=== PATIENT | female | born 1950 | race Caucasian/White ===

== ENCOUNTER 2018-03-15 00:44 | Emergency (ER) | payer MEDICARE, BC ==
[2018-03-15] MEDS ORDERED: HYDROmorphone 2 MG/ML Syringe SUBCUT ONE (01:04)
[2018-03-15] MEDS ORDERED: Sodium Chloride 0.9% 1,000 ML IV ONE (04:02)
[2018-03-15] MEDS ORDERED: Ondansetron 4 MG/2 ML SDV IVPUSH ONE (04:03)
--- NOTE | 2018-03-15 04:12 | ER ---
DATE OF SERVICE: 03/15/2018 HISTORY OF PRESENT ILLNESS: A 67-year-old lady who comes in with her with complaints of abdominal pain on the left side, mostly involving the upper left quadrant. She states that it started about 7 p.m. and it came on quickly and has been severe pain. She did take 1 hydrocodone, but it did not touch her pain. The patient denies any nausea or vomiting. She rates her pain at 9 or 10/10. She denies any falls or injuries. She has not been sick recently. She does have history of a kidney stone about 2 years ago, and she states this does feel similar. Her previous episode, the stone had to be removed. OBJECTIVE: GENERAL APPEARANCE: The patient is awake and alert. She is uncomfortable because of the pain. VITAL SIGNS: Reviewed. Pulse is 122. She is afebrile. Blood pressure 116/76, respirations 22, and O2 sats 95%. ABDOMEN: The patient has diffuse abdominal pain on the left upper and lower quadrant area with palpation. Bowel sounds are present, but hypoactive. SKIN: Warm and dry. LUNGS: Clear. CARDIAC: Heart sounds distinct without murmurs. HEENT: Oral mucous membranes moist. Tonsils not enlarged or injected. INITIAL TREATMENT: Dilaudid 2 mg was given subcutaneously and this did provide good pain control for the patient. LABS: Include CBC showing a normal white count of 8.0, hemoglobin is good at 13.7. Neutrophils are slightly elevated at 85. Comprehensive metabolic panel shows electrolytes are good. Kidney function reveals a BUN of 30, creatinine 1.06, both slightly elevated. GFR 52. Liver enzymes are good. Amylase and lipase are normal. CT of the abdomen and pelvis show a 6 mm stone in the right proximal ureter with hydronephrosis and hydroureter, rated as moderate. DIAGNOSIS: Obstructing kidney stone or renal stone. TREATMENT PLAN: I did talk with the hospitalist, Dr Humphries at [facility] , who accepted the patient and arrangements are being made for transfer. The patient should be leaving our facility within 15 or 20 minutes. An IV has been started. She will be given normal saline in a bolus form until leaving and then 200 an hour upon leaving our facility. We will also give her 1 dose of Zofran IV to assist with any problems with nausea that may occur en route. Final meds given before transfer; Toradol 15 mg IV ZOFRAN 4 MG IV Dilaudid 2 mg IV. Patient rates her pain at 4/10 when leaving our facility. She is resting comfortably. CRS/MODL /[id number] MTDD
[2018-03-15] MEDS ORDERED: Morphine 2 MG/ML Syringe ONE (04:14)
[2018-03-15] MEDS ORDERED: Ondansetron 4 MG/2 ML SDV ONE (04:14)
[2018-03-15] MEDS ORDERED: Morphine 10 MG/ML SDV IV ONE (04:15)
[2018-03-15] MEDS ORDERED: Ketorolac 30 MG/ML SDV IVPUSH ONE (04:16)
[2018-03-15 04:20] VITALS: BP 180/82
[2018-03-15] MEDS ORDERED: Ketorolac 30 MG/ML SDV ONE (04:21)
[2018-03-15] MEDS ORDERED: HYDROmorphone 2 MG/ML Syringe ONE (04:31)
[2018-03-15] MEDS: HYDROmorphone 2 MG/ML Syringe IVPUSH ONE ×2 (04:34→04:35)
--- NOTE | 2018-03-15 07:03 | CT ---
UNENHANCED ABDOMEN AND PELVIC CT, 03/15/19 Multislice acquisition through the abdomen and pelvis without IV or oral contrast was performed. Comparison was made to a prior unenhanced abdomen and pelvic CT dated 08/03/16. Breathing motion artifact degrades imaging quality. There are atelectatic changes in the dependent portion of both lower lungs and in both lung bases. There are multiple calcifications inferior to the hilum most likely representing calcified lymph nodes that compare to prior granulomatous disease The heart size is normal. There is a small pericardial effusion. There are coronary artery calcifications. There is a moderate sized hiatal hernia. The liver is normal size. There are calcifications within the liver consistent with prior granulomatous disease. The liver is otherwise unremarkable. The gallbladder appears normal. No calcified gallstones. The spleen is normal size. There are multiple calcifications within the spleen consistent with prior granulomatous disease. The spleen otherwise appears normal. The pancreas appears normal. The right and left adrenals appear normal. There is a 4 mm right ureteral calculi located in the right ureter at the L3 level. There is hydronephrosis and hydroureter proximal to it. The right kidney is swollen and there is perinephric fat stranding. This is probably related to obstruction. The left kidney and collecting system appear normal. The bladder is partially fluid filled. It appears normal. There is a 4 cm contour deforming mass in the anterior aspect of the uterus on the left consistent with a uterine leiomyoma. The appendix is not dilated. No evidence of appendicitis. There is diverticulosis of the transverse, descending, and sigmoid colon . No evidence of diverticulitis. There is moderate amount of stool noted in the ascending and transverse colon. There is a small umbilical hernia containing fat. No free air. No free fluid. No dilated loops of bowel. No adenopathy. No aortic aneurysm. Thee are laminectomy defects at multiple levels in the lumbar spine with internal fixation. IMPRESSION: 4 mm right ureteral calculi with obstruction. Multiple other findings as discussed above. [id number] [facility]
== END 2018-03-15 04:48 ==
LOC: LB.ED 00:44
DX: N13.2 Hydronephrosis with renal and ureteral calculous obstruction (principal)
CPT/HCPCS: 36415; 74176; 80053; 82150; 83690; 85025; 96372; 96374; 96375; 99285; A0425; A0429; J1170; J1885; J2270; J2405; J7030

== ENCOUNTER 2019-09-05 18:34 | Emergency (ER) | payer MEDICARE ==
--- NOTE | 2019-09-05 19:12 | EDM.PDOC ---
ED HPI GENERAL MEDICAL PROBLEM - General Chief Complaint: General Stated Complaint: FALL AT HOME Time Seen by Provider: 09/05/19 18:50 Source of Information: Reports: Patient, Family History Limitations: Reports: Altered Mental Status - History of Present Illness INITIAL COMMENTS - FREE TEXT/NARRATIVE: Fell X2 today recently dx with [place]'s chorea. Had long drives past 2 days. C/o back pain s/p surgery 03/2019 Onset: Today Duration: Getting Worse Location: Reports: Back Quality: Reports: Ache Severity: Moderate Improves with: Reports: None Worsens with: Reports: Movement Context: Reports: Activity Associated Symptoms: Reports: No Other Symptoms Treatments BIG 6 DEALER: Reports: NSAIDS Lower Back Pain Score (Numeric/FACES): 5 - Related Data Allergies Allergy/AdvReac Type Severity Reaction Status Date / Time No Known Allergies Allergy Verified 09/05/19 18:43 Home Meds: Home Meds Ibuprofen 400 mg PO Q4HR PRN 03/14/17 [History] Past Medical History HEENT History: Reports: Other (See Below) Other HEENT History: reading glasses Gastrointestinal History: Reports: Irritable Bowel Syndrome Genitourinary History: Reports: Renal Calculus 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: Musculoskeletal History: Reports: Arthritis, Back Pain, Chronic, Other (See Below) Other Musculoskeletal History: s/p TLIF L3-S1 - Infectious Disease History Infectious Disease History: Reports: Chicken Pox, Measles - Past Surgical History HEENT Surgical History: Reports: Oral Surgery GI Surgical History: Reports: Colonoscopy Female Surgical History: Reports: Kidney stone extraction Endocrine Surgical History: Reports: Thyroidectomy, Other (See Below) Other Endocrine Surgeries/Procedures: partial thyroidectomy Musculoskeletal Surgical History: Reports: None Social & Family History - Family History Family Medical History: Noncontributory - Caffeine Use Caffeine Use: Reports: None ED ROS GENERAL - Review of Systems Review Of Systems: See Below Constitutional: Reports: Weakness HEENT: Reports: No Symptoms Respiratory: Reports: No Symptoms Cardiovascular: Reports: No Symptoms GI/Abdominal: Reports: No Symptoms : Reports: Frequency Musculoskeletal: Reports: Other (poor coordination in legs) ED EXAM, GENERAL - Physical Exam Exam: See Below Course - Vital Signs Last Recorded V/S: Last Vital Signs Temp 36.9 C 09/05/19 19:00 Pulse 103 H 09/05/19 21:06 Resp 16 09/05/19 21:06 BP 123/78 03/05/20 21:06 Pulse Ox 93 L 09/05/19 21:06 - Orders/Labs/Meds Labs: Laboratory Tests 09/05/19 09/05/19 Range/Units 19:23 19:23 WBC 15.2 H D (4.0-11.0) K/uL RBC 3.85 (3.80-5.80) M/uL Hgb 12.4 (11.5-16.5) g/dL Hct 35.7 L (37.0-47.0) % MCV 93 (76-96) fL MCH 32.2 H (27.0-32.0) pg MCHC 34.7 (31.0-35.0) g/dL RDW 13.3 (11.0-16.0) % Plt Count 142 L (150-500) K/uL MPV 11.8 H (6.0-10.0) fL Neut % (Auto) 89.9 H (45.0-70.0) % Lymph % (Auto) 4.5 L (20.0-40.0) % [place] % (Auto) 5.5 (3.0-10.0) % Eos % (Auto) 0.0 L (1.0-5.0) % Baso % (Auto) 0.1 (0.0-0.5) % Neut # (Auto) 13.68 H (2.00-7.50) K/uL Lymph # (Auto) 0.69 L (1.50-4.00) K/uL [place] # (Auto) 0.84 H (0.20-0.80) K/uL Eos # (Auto) 0.00 L (0.04-0.40) K/uL Baso # (Auto) 0.01 L (0.02-0.10) K/uL Sodium 135 L (136-145) mmol/L Potassium 3.3 L D (3.5-5.1) mmol/L Chloride 100 (98-107) mmol/L Carbon Dioxide 22.7 (21.0-32.0) mmol/L Anion Gap 15.6 H (5.0-15.0) mmol/L BUN 37 H D (8-26) mg/dL Creatinine 1.60 H D (0.55-1.02) mg/dL Est Cr Clr Drug Dosing TNP Estimated GFR (MDRD) 32 L (>60) MLS/MIN BUN/Creatinine Ratio 23.1 (6-25) Glucose 128 H D (74-100) mg/dL Calcium 10.7 H (8.5-10.1) mg/dL Departure - Departure Time of Disposition: 20:10 Disposition: Home, Self-Care 01 Clinical Impression: Ataxia - Discharge Information *PRESCRIPTION DRUG MONITORING PROGRAM REVIEWED*: No *COPY OF PRESCRIPTION DRUG MONITORING REPORT IN PATIENT MERI: No Instructions: How To Use a Four-Wheeled Walker, Fatigue, Back Exercises, Easy- to-Read, How to Use a Walker, Chronic Back Pain, [id number] Referrals: PCP,None [Primary Care Provider] - Forms: ED Department Discharge Sepsis Event Note - Focused Exam Date Exam was Performed: 09/11/19 Time Exam was Performed: 16:05
[2019-09-05 21:08] VITALS: BP 123/78; PULSE 103
--- NOTE | 2019-09-05 23:35 | ER ---
HISTORY OF PRESENT ILLNESS: The patient is a 68-year-old woman who was brought in by ambulance because of weakness and poor coordination. She had fallen twice at home today, and her was unable to get her up after the last fall. History is significant, in that they have just made a 2 day round trip to [facility] last evening. Yesterday, they were informed of a diagnosis of [place]'s chorea. She is complaining of back pain, but has no other acute problems. PHYSICAL EXAMINATON: VITAL SIGNS: Within normal limits. LABORATORY DATA: White count was mildly elevated at 15,000 of unknown significance. X-rays of the lumbar spine show her previous surgery hardware appears to be intact. IMPRESSION: Leg weakness. PLAN: I think some of this is due to her [place]'s plus stress of a long car trip. They are encouraged to see a primary provider for followup and probable physical therapy referral and other appropriate treatments. LOVE/PRINCE /[id number]
--- NOTE | 2019-09-06 12:21 | CR ---
DATE OF SERVICE: 09/05/19 CLINICAL DATA: pain, weakness LUMBAR SPINE: Comparison is made to a prior exam dated 08/24/17. The patient is status post L3-4, L4-5, and L5-S1 discectomy. The patient is status post fusion from L2 to S1. There is internal fixation of L2, L3, L4, L5 , and S1 with posterior metal rods and pedicle screws. There is degenerative disc disease throughout the lower thoracic and upper lumbar spine. There are degenerative changes involving the SI joints. No acute abnormalities. [id number] MTDD
== END 2019-09-05 20:10 | disposition home or self-care (01) ==
LOC: LB.ED 18:34
DX: R27.0 Ataxia, unspecified (principal); R53.1 Weakness; M54.5 Low back pain; W19.XXXA Unspecified fall, initial encounter; Y92.009 Unspecified place in unspecified non-institutional (private) residence as the place of occurrence of the external cause
CPT/HCPCS: 36415; 72100; 80048; 85025; 99282; 99284; A0425; A0429

== ENCOUNTER 2020-03-28 12:23 | Emergency (ER) | payer MEDICARE ==
[2020-03-28 13:29] VITALS: BP 146/76; PULSE 79
[2020-03-28] MEDS ORDERED: Sulfamethoxazole/Trimethoprim 800-160 MG Tab ONE (14:00)
--- NOTE | 2020-03-28 17:14 | ER ---
REASON FOR EMERGENCY ROOM VISIT: Weakness. 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 She does have a family history of Arnold chorea in her mother. Since August, she has gradually suffered as a consequence of this decline in her gait with progressive unsteadiness. She was diagnosed when she was referred to the [facility] last August. According to the patient and her , her gait unsteadiness and generalized weakness have waxed and waned and lately over the past 3 or 4 days, however, this weakness has been more pronounced. She was apparently doing fairly well with physical therapy, but because of insurance issues, they had to discontinue this 2 weeks ago. Over the past week or so, she has been acting more "out of it" and had more weakness and unsteadiness with her gait. She has not had any visual changes or changes in her speech, although her speech is impaired as a consequence of her [place] chorea. Her orientation and mental function have been reasonably stable. She is on no medications. She did have a mild cough when I walked in the emergency room, but she denies any significant coughing-like symptoms. PAST MEDICAL HISTORY: 1. [place] chorea. 2. Back surgery 3 years ago because of pain. She had a lumbar laminectomy and spinal fusion. MEDICATIONS: None. ALLERGIES: NONE TO MEDICATIONS. REVIEW OF SYSTEMS: Pertinent positives and negatives as noted in the HPI. PHYSICAL EXAMINATION: GENERAL: She is awake and alert. She smiles appropriately and is in no acute distress. Her speech is somewhat delayed, but she follows a logical thought pattern and is oriented x3. VITALS: She is febrile with a temperature of 38.1, heart rate is 79, blood pressure 146/76, respirations 16, O2 sats 98%. HEENT: Head is normocephalic. Oropharynx is normal. No scleral icterus or conjunctivitis. NECK: Supple. No adenopathy. CHEST: Clear to auscultation with no wheezes, rhonchi, or rales. CARDIAC: Regular rate without murmur. ABDOMEN: Soft and nontender. She has no CVA tenderness. NEUROLOGIC: She demonstrates choreiform movements, typical of [place] chorea. Her muscle strength is symmetrical bilaterally in the upper and lower extremities. Her deep tendon reflexes are brisk bilaterally and symmetrical. Sensation is normal to crude touch. LABORATORY DATA: A chest x-ray was obtained and shows no active pulmonary disease. Because of the deterioration and concerns that her decline in terms of strength and gait was much more pronounced over the past 3 or 4 days, we went ahead with a CT scan which showed no evidence of acute thought process and no evidence of stroke. CBC showed that her white count is elevated at 14,100. Her hemoglobin is 13.4. Her urinalysis shows that she has proteinuria with a large amount of occult blood. She has leukocyte esterase with 10 to 20 rbc's per high-powered field and 40 to 50 wbc's per high-power field with a few clumps and many bacteria. Because of her mild respiratory symptoms when I first saw her, I went ahead and obtained a COVID rapid antigen test and that was negative. IMPRESSION: Urinary tract infection. PLAN: She was given Bactrim DS, dispensed #20. Her and she were instructed that she should take one twice daily x5 days and liberalization of fluids was encouraged. I explained to them I think this explains her weakness quite likely and it certainly explains her low-grade fever. They understand and agree with this plan. All questions were answered. BALDOMERO /[id number]
--- NOTE | 2020-03-29 09:41 | CT ---
Date of Service: 03/28/20 Clinical Data: general UNENHANCED BRAIN CT: Multislice axial acquisition was performed. No priors. There is diffuse cerebral atrophy. There are periventricular lucencies bilaterally consistent with small vessel ischemic changes. No masses or mass effect. No intracranial hemorrhage. No evidence of acute or subacute infarct. No osseous abnormalities. IMPRESSION: No acute intracranial abnormalities. [id number] [facility]
--- NOTE | 2020-03-29 09:45 | CR ---
Date of Service: 03/28/20 Clinical Data: general PA AND LATERAL CHEST: No priors. The heart size is normal. The aorta is calcified and ectatic. There are multiple calcifications overlying the right hilum. There is also calcified nodule in the right lower lung laterally. The findings are consistent with prior granulomatous disease. The lungs are otherwise clear. No pneumothorax. No pleural effusions. No evidence of acute intrathoracic disease. [id number] [facility]
== END 2020-03-28 14:45 | disposition home or self-care (01) ==
LOC: LB.ED 12:23
DX: N39.0 Urinary tract infection, site not specified (principal); R05 Cough
CPT/HCPCS: 36415; 70450; 71046; 81001; 85025; 99283; 99285; A9270; U0002

== ENCOUNTER 2020-05-08 09:30 | Emergency (ER) | payer MEDICARE ==
[2020-05-08 09:51] VITALS: BP 125/68; PULSE 94
--- NOTE | 2020-05-08 09:56 | EDM.PDOC ---
ED HPI GENERAL MEDICAL PROBLEM - General Chief Complaint: Genitourinary Problem Stated Complaint: WEAKNESS Time Seen by Provider: 05/08/20 09:35 - History of Present Illness INITIAL COMMENTS - FREE TEXT/NARRATIVE: 69 year old female with a past medical hisroty of [place]'s Disease (diagnosed in August) presents with 2 days of increased generalized weakness. She had similar symptoms 2 weeks ago and was found to have a UTI. She has chronic body aches and is at baseline now without any new pain. Denies any cough, fever, CP, SOB, diarrhea, abdominal pain, or focal weakness. Severity: Moderate Associated Symptoms: Reports: Weakness - Related Data Allergies Allergy/AdvReac Type Severity Reaction Status Date / Time No Known Allergies Allergy Verified 09/05/19 18:43 Home Meds: Home Meds Ibuprofen 400 mg PO Q4HR PRN 03/14/17 [History] cephALEXin [Keflex] 500 mg PO Q6HR 10 Days #40 capsule 05/08/20 [Rx] Past Medical History - Past Health History Medical/Surgical History: Denies Medical/Surgical History HEENT History: Reports: Other (See Below) Other HEENT History: reading glasses Gastrointestinal History: Reports: Irritable Bowel Syndrome Genitourinary History: Reports: Renal Calculus 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: Musculoskeletal History: Reports: Arthritis, Back Pain, Chronic, Other (See Below) Other Musculoskeletal History: s/p TLIF L3-S1 Neurological History: Reports: Other (See Below) Other Neuro History: Huntingtons newly diagnosis - Infectious Disease History Infectious Disease History: Reports: Chicken Pox, Measles - Past Surgical History HEENT Surgical History: Reports: Oral Surgery GI Surgical History: Reports: Colonoscopy Female Surgical History: Reports: Kidney stone extraction Endocrine Surgical History: Reports: Thyroidectomy, Other (See Below) Other Endocrine Surgeries/Procedures: partial thyroidectomy Musculoskeletal Surgical History: Reports: None Social & Family History - Family History Family Medical History: Noncontributory - Caffeine Use Caffeine Use: Reports: None ED ROS GENERAL - Review of Systems Review Of Systems: See Below Constitutional: Reports: Weakness HEENT: Reports: No Symptoms Respiratory: Reports: No Symptoms Cardiovascular: Reports: No Symptoms Endocrine: Reports: No Symptoms GI/Abdominal: Reports: No Symptoms : Reports: Other (states she urinates a lot, but denies any pain) Musculoskeletal: Reports: Joint Pain, Muscle Pain, Muscle Stiffness Skin: Reports: No Symptoms Neurological: Reports: Weakness Psychiatric: Reports: No Symptoms ED EXAM, NEURO - Physical Exam Exam: See Below Exam Limited By: No Limitations General Appearance: Alert, No Apparent Distress Eye Exam: Bilateral Eye: Normal Inspection, PERRL Ears: Normal External Exam, Normal Canal, Normal TMs Nose: Normal Inspection, No Blood Throat/Mouth: Normal Inspection, Normal Lips, Normal Teeth, Normal Gums, Normal Oropharynx, Normal Voice, No Airway Compromise Head Exam: Atraumatic Neck: Normal Inspection, Non-Tender Respiratory/Chest: No Respiratory Distress, Lungs Clear, Normal Breath Sounds Cardiovascular: Normal Peripheral Pulses, Regular Rate, Rhythm, No Edema, No JVD, No Murmur GI/Abdominal: Normal Bowel Sounds, Soft, Non-Tender Neurological: Alert, Normal Mood/Affect, CN II-XII Intact, Oriented x 3 Back Exam: Normal Inspection, CVA Tenderness (L) Extremities: Normal Inspection, Non-Tender, No Pedal Edema, Normal Capillary Refill Psychiatric: Normal Affect, Normal Mood Skin Exam: Warm, Dry, Intact, No Rash Course - Vital Signs Last Recorded V/S: Last Vital Signs Temp 99.1 F 05/08/20 09:49 Pulse 94 05/08/20 09:49 Resp 18 05/08/20 09:49 BP 125/68 05/08/20 09:49 Pulse Ox 95 05/08/20 09:49 - Orders/Labs/Meds Orders: Active Orders 24 hr Category Date Time Status EKG Documentation Completion [RC] ASDIRECTED Care 05/08/20 09:45 Active CULTURE URINE [RM] Stat Lab 05/08/20 10:32 Received cephALEXin [Keflex] Med 05/08/20 11:26 Once 500 mg PO ONETIME ONE Labs: Laboratory Tests 05/08/20 05/08/20 05/08/20 Range/Units 09:50 10:00 10:00 WBC 10.3 D (4.0-11.0) K/uL RBC 3.59 L (3.80-5.80) M/uL Hgb 11.5 (11.5-16.5) g/dL Hct 33.7 L (37.0-47.0) % MCV 94 (76-96) fL MCH 32.0 (27.0-32.0) pg MCHC 34.1 (31.0-35.0) g/dL RDW 14.4 (11.0-16.0) % Plt Count 171 (150-500) K/uL MPV 11.0 H (6.0-10.0) fL Neut % (Auto) 88.5 H (45.0-70.0) % Lymph % (Auto) 4.1 L (20.0-40.0) % [place] % (Auto) 7.1 (3.0-10.0) % Eos % (Auto) 0.1 L (1.0-5.0) % Baso % (Auto) 0.2 (0.0-0.5) % Neut # (Auto) 9.15 H (2.00-7.50) K/uL Lymph # (Auto) 0.42 L (1.50-4.00) K/uL [place] # (Auto) 0.73 (0.20-0.80) K/uL Eos # (Auto) 0.01 L (0.04-0.40) K/uL Baso # (Auto) 0.02 (0.02-0.10) K/uL Sodium 139 (136-145) mmol/L Potassium 3.3 L (3.5-5.1) mmol/L Chloride 105 (98-107) mmol/L Carbon Dioxide 24.1 (21.0-32.0) mmol/L Anion Gap 13.2 (5.0-15.0) mmol/L BUN 16 (8-26) mg/dL Creatinine 0.96 (0.55-1.02) mg/dL Est Cr Clr Drug Dosing TNP Estimated GFR (MDRD) 57 L (>60) MLS/MIN BUN/Creatinine Ratio 16.7 (6-25) Glucose 113 H (74-100) mg/dL Lactic Acid 0.9 (0.4-2.0) mmol/L Calcium 9.9 (8.5-10.1) mg/dL Total Bilirubin 0.6 D (0.0-1.0) mg/dL AST 28 (15-37) U/L ALT 44 (12-78) U/L Alkaline Phosphatase 69 (46-116) U/L Total Protein 7.1 (6.4-8.2) g/dL Albumin 3.1 L (3.4-5.0) g/dL Globulin 4.0 (2.2-4.2) g/dL Albumin/Globulin Ratio 0.8 (0.8-2.0) Urine Color Urine Appearance (CLEAR) Urine pH (5.0-8.0) Ur Specific [place] (1.003-1.030) Urine Protein (NEGATIVE) mg/dL Urine Glucose (UA) (NEGATIVE) mg/dL Urine Ketones (NEGATIVE) mg/dL Urine Occult Blood (NEGATIVE) Urine Nitrite (NEGATIVE) Urine Bilirubin (NEGATIVE) Urine Urobilinogen (0.2-1.0) E.U./dL Ur Leukocyte Esterase (NEGATIVE) Urine RBC /HPF Urine WBC /HPF Ur Epithelial Cells /HPF Urine Bacteria /HPF Urine Mucus /HPF 05/08/20 Range/Units 10:32 WBC (4.0-11.0) K/uL RBC (3.80-5.80) M/uL Hgb (11.5-16.5) g/dL Hct (37.0-47.0) % MCV (76-96) fL MCH (27.0-32.0) pg MCHC (31.0-35.0) g/dL RDW (11.0-16.0) % Plt Count (150-500) K/uL MPV (6.0-10.0) fL Neut % (Auto) (45.0-70.0) % Lymph % (Auto) (20.0-40.0) % [place] % (Auto) (3.0-10.0) % Eos % (Auto) (1.0-5.0) % Baso % (Auto) (0.0-0.5) % Neut # (Auto) (2.00-7.50) K/uL Lymph # (Auto) (1.50-4.00) K/uL [place] # (Auto) (0.20-0.80) K/uL Eos # (Auto) (0.04-0.40) K/uL Baso # (Auto) (0.02-0.10) K/uL Sodium (136-145) mmol/L Potassium (3.5-5.1) mmol/L Chloride (98-107) mmol/L Carbon Dioxide (21.0-32.0) mmol/L Anion Gap (5.0-15.0) mmol/L BUN (8-26) mg/dL Creatinine (0.55-1.02) mg/dL Est Cr Clr Drug Dosing Estimated GFR (MDRD) (>60) MLS/MIN BUN/Creatinine Ratio (6-25) Glucose (74-100) mg/dL Lactic Acid (0.4-2.0) mmol/L Calcium (8.5-10.1) mg/dL Total Bilirubin (0.0-1.0) mg/dL AST (15-37) U/L ALT (12-78) U/L Alkaline Phosphatase (46-116) U/L Total Protein (6.4-8.2) g/dL Albumin (3.4-5.0) g/dL Globulin (2.2-4.2) g/dL Albumin/Globulin Ratio (0.8-2.0) Urine Color Yellow Urine Appearance Clear (CLEAR) Urine pH 5.5 (5.0-8.0) Ur Specific [place] 1.020 (1.003-1.030) Urine Protein 100 H (NEGATIVE) mg/dL Urine Glucose (UA) Negative (NEGATIVE) mg/dL Urine Ketones 15 H (NEGATIVE) mg/dL Urine Occult Blood Moderate H (NEGATIVE) Urine Nitrite Positive H (NEGATIVE) Urine Bilirubin Negative (NEGATIVE) Urine Urobilinogen 0.2 (0.2-1.0) E.U./dL Ur Leukocyte Esterase Small H (NEGATIVE) Urine RBC 20-30 H /HPF Urine WBC 50-75 H /HPF Ur Epithelial Cells Few /HPF Urine Bacteria Moderate H /HPF Urine Mucus Few /HPF Departure - Departure Time of Disposition: 11:40 Disposition: Home, Self-Care 01 Condition: Good Clinical Impression: UTI, Urinary tract infectious disease - Discharge Information *PRESCRIPTION DRUG MONITORING PROGRAM REVIEWED*: Not Applicable *COPY OF PRESCRIPTION DRUG MONITORING REPORT IN PATIENT MERI: Not Applicable Prescriptions: cephALEXin [Keflex] 500 mg PO Q6HR 10 Days #40 capsule Referrals: PCP,None [Primary Care Provider] - Forms: ED Department Discharge Additional Instructions: Take the keflex as directed. Follow up in clinic in 2 weeks or sooner if s ymptoms persist. Return to ED for any increased or new concerninig symptoms. Drink plenty of fluid. Sepsis Event Note (ED) - Focused Exam Vital Signs: Vital Signs Temp Pulse Resp BP Pulse Ox 05/08/20 09:49 99.1 F 94 18 125/68 95 - My Orders Last 24 Hours: My Active Orders 05/08/20 09:45 EKG Documentation Completion [RC] ASDIRECTED 05/08/20 10:32 CULTURE URINE [RM] Stat 05/08/20 11:26 cephALEXin [Keflex] 500 mg PO ONETIME ONE - Assessment/Plan Last 24 Hours: My Active Orders 05/08/20 09:45 EKG Documentation Completion [RC] ASDIRECTED 05/08/20 10:32 CULTURE URINE [RM] Stat 05/08/20 11:26 cephALEXin [Keflex] 500 mg PO ONETIME ONE Plan: Spoke with patient about admission for IV antibiotics, she declines admission at this time. She will start oral keflex 500mg 4xday x 10 days. She will return to ED for any increased or new conerning symptoms. Follow up in 2 weeks with PCP. Patient verbalized understanding.
[2020-05-08] MEDS ORDERED: Cephalexin 500 MG Cap PO ONE (11:26)
== END 2020-05-08 12:00 | disposition home or self-care (01) ==
LOC: LB.ED 09:30
DX: N39.0 Urinary tract infection, site not specified (principal)
CPT/HCPCS: 36415; 80053; 81001; 83605; 85025; 87086; 87088; 87186; 93005; 99283; 99285-25; A0425; A0429

== ENCOUNTER 2020-05-22 20:58 | Emergency (ER) | payer MEDICARE ==
--- NOTE | 2020-05-22 21:48 | EDM.PDOC ---
ED HPI GENERAL MEDICAL PROBLEM - General Chief Complaint: Abdominal Pain Stated Complaint: abdominal pain Time Seen by Provider: 05/22/20 21:10 Source of Information: Reports: Patient, Family, Old Records History Limitations: Reports: No Limitations - History of Present Illness INITIAL COMMENTS - FREE TEXT/NARRATIVE: pt states onset bilateral upper quadrant abdominal pain with right greater than left, about an hour ago. outiside records from [place] show medical history significant for huntingtons disease, urology appointment yesterday with ABD US yesterday showing left side hydronephrosis without visualized obstruction and UA concerning for UTI but pt is currently asymptomatic regarding dysuria, pyuria, fever, chills. pt also denies fever, nausea, vomiting. pt states pain increases with palpation and describes it as "sharp at times and constant" Onset: Today upper abd pain Pain Score (Numeric/FACES): 6 - Related Data Allergies Allergy/AdvReac Type Severity Reaction Status Date / Time No Known Allergies Allergy Verified 05/22/20 22:06 Home Meds: Home Meds Ibuprofen 400 mg PO Q4HR PRN 03/14/17 [History] Past Medical History - Past Health History Medical/Surgical History: Denies Medical/Surgical History HEENT History: Reports: Other (See Below) Other HEENT History: reading glasses Gastrointestinal History: Reports: Irritable Bowel Syndrome Genitourinary History: Reports: Renal Calculus, UTI, Recurrent [employer]IVE History: Reports: Musculoskeletal History: Reports: Arthritis, Back Pain, Chronic, Other (See Below) Other Musculoskeletal History: s/p TLIF L3-S1 Neurological History: Reports: Other (See Below) Other Neuro History: Huntingtons disease - Infectious Disease History Infectious Disease History: Reports: Chicken Pox, Measles - Past Surgical History HEENT Surgical History: Reports: Oral Surgery GI Surgical History: Reports: Colonoscopy Female Surgical History: Reports: Kidney stone extraction Endocrine Surgical History: Reports: Thyroidectomy, Other (See Below) Other Endocrine Surgeries/Procedures: partial thyroidectomy Musculoskeletal Surgical History: Reports: None Social & Family History - Family History Family Medical History: No Pertinent Family History - Caffeine Use Caffeine Use: Reports: None ED ROS GENERAL - Review of Systems Review Of Systems: Comprehensive ROS is negative, except as noted in HPI. ED EXAM, GI/ABD - Physical Exam Exam: See Below Exam Limited By: No Limitations General Appearance: Alert, Mild Distress Respiratory/Chest: No Respiratory Distress, Lungs Clear, Normal Breath Sounds Cardiovascular: Normal Peripheral Pulses, Regular Rate, Rhythm, No Edema, No Murmur GI/Abdominal Exam: Normal Bowel Sounds, Soft, No Abnormal Bruit, No Mass, Tender (RUQ and LUQ), Other (no CVA) Extremities: Non-Tender, No Pedal Edema Neurological: Alert, Oriented Skin Exam: Warm, Dry, Intact, No Rash Course - Vital Signs Last Recorded V/S: Last Vital Signs Temp 97.3 F 05/22/20 20:59 Pulse 81 05/22/20 20:59 Resp 16 05/22/20 20:59 BP 138/113 H 05/22/20 20:59 Pulse Ox 98 05/22/20 20:59 - Orders/Labs/Meds Orders: Active Orders 24 hr Category Date Time Status Abdomen Pelvis w Cont [CT] Stat Exams 05/22/20 21:35 Ordered CBC WITH AUTO DIFF [HEME] Stat Lab 05/22/20 21:35 Ordered COMPREHENSIVE METABOLIC PN,CMP [CHEM] Stat Lab 05/22/20 21:35 Ordered LIPASE [CHEM] Stat Lab 05/22/20 21:35 Ordered Departure - Departure Time of Disposition: 23:00 Disposition: Home, Self-Care 01 Condition: Good Clinical Impression: Hydronephrosis with renal and ureteral calculous obstruction - Discharge Information *PRESCRIPTION DRUG MONITORING PROGRAM REVIEWED*: Not Applicable *COPY OF PRESCRIPTION DRUG MONITORING REPORT IN PATIENT MERI: Not Applicable Instructions: Hydronephrosis Sepsis Event Note (ED) - Evaluation Sepsis Screening Result: No Definite Risk - Focused Exam Vital Signs: Vital Signs Temp Pulse Resp BP Pulse Ox 05/22/20 20:59 97.3 F 81 16 138/113 H 98 - Problem List & Annotations (1) Hydronephrosis with renal and ureteral calculous obstruction SNOMED Code(s): 324205641 Code(s): N13.2 - HYDRONEPHROSIS WITH RENAL AND URETERAL CALCULOUS OBSTRUCTION Status: Acute Current Visit: Yes - Problem List Review Problem List Initiated/Reviewed/Updated: Yes - My Orders Last 24 Hours: My Active Orders 05/22/20 21:35 Abdomen Pelvis w Cont [CT] Stat CBC WITH AUTO DIFF [HEME] Stat COMPREHENSIVE METABOLIC PN,CMP [CHEM] Stat LIPASE [CHEM] Stat - Assessment/Plan Last 24 Hours: My Active Orders 05/22/20 21:35 Abdomen Pelvis w Cont [CT] Stat CBC WITH AUTO DIFF [HEME] Stat COMPREHENSIVE METABOLIC PN,CMP [CHEM] Stat LIPASE [CHEM] Stat Plan: discharge home. Ibuprofen and tylenol OTC for discomfort continue with adequate fluids continue to follow up as scheduled with urology. if symptoms aren't controlled well with tylenol and ibuprofen, call ED I can send a prescription to the pharmacy. if symptoms worsen or become more concerning, return to ER for recheck. differentials considered were cholelithiasis, pancreatitis, pyelonephritis, ischemic bowel, SBO.
[2020-05-22] MEDS ORDERED: fentaNYL 100 MCG/2 ML SDV IVPUSH PRN (22:18)
[2020-05-22] MEDS ORDERED: fentaNYL 100 MCG/2 ML SDV ONE (22:31)
[2020-05-22 22:50] VITALS: BP 151/83; PULSE 79
--- NOTE | 2020-05-24 09:53 | CT ---
DATE OF SERVICE: 05/22/20 CLINICAL DATA: RUQ abd pain, TTP RUQ ENHANCED ABDOMEN AND PELVIC CT: Multislice axial acquisition with IV, but without oral contrast was performed. Comparison is made to a prior unenhanced abdomen and pelvic CT dated 03/15/18. There are atelectatic changes in both lung bases. There are calcifications in the right hilum, which most likely represents calcified lymph nodes from prior granulomatous disease. The lung bases are otherwise clear. The heart size is normal. There are mild coronary artery calcifications. No significant pericardial effusion. There is moderate sized hiatal hernia. There is mild diffuse fatty infiltration of the liver. No focal hepatic lesions. The gallbladder appears normal. No biliary duct dilatation. There are calcifications within the spleen consistent with prior granulomatous disease. The spleen otherwise appears normal. The pancreas appears normal. The right and left adrenals appear normal. There is a 6 mm proximal left ureteral calculi located near the ureteropelvic junction. There is hydronephrosis proximal to it consistent with obstruction. The right and left kidneys are otherwise unremarkable. The bladder is fluid filled. It appears normal. No evidence of appendicitis. There is a moderate amount of stool present in the cecum, ascending colon, transverse colon, descending colon, and rectum. There is diverticulosis of the colon. No evidence of diverticulitis. No free air. No free fluid. No dilated loops of bowel. No adenopathy. No aortic aneurysm or dissection. There are laminectomy defects at multiple levels in the lumbar spine with internal fixation at multiple levels, unchanged from the prior exam. There is degenerative disc disease at multiple levels in the lower thoracic and upper lumbar spine. IMPRESSION: 6 mm proximal left ureteral calculi with obstruction. Other findings as discussed above. [id number] [facility]
== END 2020-05-22 23:17 | disposition home or self-care (01) ==
LOC: LB.ED 20:58
DX: N13.2 Hydronephrosis with renal and ureteral calculous obstruction (principal)
CPT/HCPCS: 36415; 74177; 80053; 83690; 85025; 96374; 99284-25; J3010